=== PATIENT | male | born 2000 ===

== ENCOUNTER 2022-07-09 10:36 | Outpatient (CLI) | payer SELFPAY ==
--- NOTE | ~2022-07-09 | MR_ITS ---
EXAMINATION: MR knee LT wo con DATE: 07/09/2022 12:12 INDICATION: Lateral left knee pain with stiffness, weakness, and limited range of motion. [place] a pop while planting foot playing soccer 2 weeks ago. TECHNIQUE: Magnetic resonance imaging (MRI) of the left knee was performed without intravenous contra st. Sequences included axial PD-weighted FS FSE, coronal PD-weighted FSE and PD-weighted FS FSE, sagi ttal PD-weighted FSE, and sagittal T2-weighted FS FSE. COMPARISON: None. FINDINGS: Medial compartment: Attenuated appearing but otherwise intact medial meniscus. Moderate diffuse cartilage thinning. Lateral compartment: Apical tear of the posterior horn, lateral meniscus. Moderate diffuse cartilage thinning. Flattening of the condylar sulcus. Patellofemoral compartment: Patellar cartilage and retinacula intact. Ligaments and tendons: The ACL is torn. Thickening and abnormal signal within and around the MCL. The PCL and LCL are intact . The remaining flexor and extensor tendons are intact. Fluid: Moderate volume joint fluid. Osseous/other: Focal marrow edema in the LFC and the posterior lateral aspect of the lateral tibial condyle. No susp icious diffuse marrow signal. IMPRESSION: 1. Complete ACL tear, with corresponding lateral compartment bone contusions. 2. Apical tear of the posterior horn, lateral meniscus. 3. Partial tear of the MCL. 4. Moderate volume joint effusion. 5. Moderate diffuse cartilage thinning in the medial and lateral compartments. Reviewed, dictated and finalized at location K. [facility]
== END 2022-07-09 10:37 ==
PROVIDERS: PCP Orthopaedic Surgery; Visit Provider Orthopaedic Surgery
DX: M25.562 Pain in left knee (principal); S83.512A Sprain of anterior cruciate ligament of left knee, initial encounter; S83.282A Other tear of lateral meniscus, current injury, left knee, initial encounter; S83.412A Sprain of medial collateral ligament of left knee, initial encounter; M25.462 Effusion, left knee
CPT/HCPCS: 73721